=== PATIENT | female | born 1980 | race Caucasian/White ===

== ENCOUNTER 2016-08-19 11:55 | Emergency (ER) | payer OTHER ==
[2016-08-19] MEDS ORDERED: IBUPROFEN 600 MG TABLET ONE (13:16)
[2016-08-19] MEDS ORDERED: METHOCARBAMOL 750 MG TABLET ONE (13:16)
== END 2016-08-19 13:26 | disposition home or self-care (01) ==
LOC: ED 11:55
DX: S16.1XXA Strain of muscle, fascia and tendon at neck level, initial encounter (principal); V43.62XA Car passenger injured in collision with other type car in traffic accident, initial encounter; Y92.410 Unspecified street and highway as the place of occurrence of the external cause
CPT/HCPCS: 99283 ×2; A9270 ×2